=== PATIENT | female | born 1950 | race Caucasian/White ===

== ENCOUNTER 2016-11-17 12:17 | Observation (INO) | payer OTHER ==
--- NOTE | 2016-11-17 12:37 | PDOC ---
History of Present Illness - General Chief Complaint: Pain, Acute Stated Complaint: fall Time Seen by Provider: 11/17/16 12:21 - History of Present Illness Initial Comments: 11/17/16 12:38 66-year-old female with a past medical history of prior breast cancer, C-spine surgery, and PE 2 She is currently on Coumadin, and will need to be on Coumadin for the rest of her life She also has a past medical history of hypothyroidism and hyperlipidemia Today she was out walking her dogs, and tripped and fell, striking her nose and right forehead on a rock There was no loss of consciousness, and patient remembers everything that happened to her She also sustained a bruise on her right knee, but states that her knee is not hurting her too badly now She denies any other injury, and was able to get herself back up and back to her car to drive herself home prior to coming to the emergency department She denies any syncope as the cause of the fall, and denies any loss of consciousness from the fall She denies any neck or back pain She denies any other injury, and the remainder of the review of systems is negative Her last INR was a month ago Past History - Past Medical History Allergies/Adverse Reactions: Allergies Allergy/AdvReac Type Severity Reaction Status Date / Time Penicillins Allergy Mild HIVES ? Verified 11/17/16 12:19 clindamycin AdvReac Intermediate Vomiting Verified 11/17/16 12:19 Home Medications: Ambulatory Orders Levothyroxine [Synthroid -] 88 mcg PO DAILY #0 11/21/11 Atorvastatin Ca [Lipitor] 20 mg PO DAILY 02/09/15 Cholecalciferol (Vitamin D3) [Vitamin D3] 2,000 unit PO DAILY 02/09/15 Liothyronine Sodium [Cytomel] 5 mcg PO TID 02/09/15 Omeprazole [Prilosec] 40 mg PO DAILY 02/09/15 Pentosan Polysulfate Sodium [Elmiron] 100 mg PO DAILY 02/09/15 Exemestane 25 mg PO DAILY tablet 05/27/15 Warfarin Sodium [Coumadin] 5 mg PO DAILY #0 06/28/15 Enoxaparin [Lovenox -] 80 mg SQ BID 06/29/15 Lactobacillus Acidophilus [Probiotic] 1 tab PO DAILY 06/29/15 Pantoprazole Sodium [Protonix -] 40 mg PO DAILY #0 tablet.ec 07/04/15 Anemia: No (DURING ) Asthma: No Cancer: Yes (breast) Cardiac Disorders: No (2010-C/O CHEST PAIN --TO ER-BILATERAL PE-ANTICOAGULATED AND RECOVERED) CVA: No COPD: No CHF: No Dementia: No Diabetes: No GI Disorders: Yes (GERD) Disorders: Yes (H/O INTERSTITIAL CYSTITIS,IMPROVED SINCE ON [place]) HTN: Yes (RECENTLY,"ANXIOUS" R/T SURGERY) Hypercholesterolemia: Yes Liver Disease: No Seizures: No Thyroid Disease: Yes Other medical history: mixed conective tissue dz - Surgical History Abdominal Surgery: Yes (BENIGN MASS REMOVED FROM ABD 1994) Appendectomy: No Cardiac Surgery: No Cholecystectomy: No Lung Surgery: No Neurologic Surgery: No Orthopedic Surgery: Yes (RIGHT ANKLE ORIF 2004,) - Immunization History Td Vaccination: Yes Immunization Up to Date: Yes - Psycho/Social/Smoking Cessation Hx Anxiety: No Suicidal Ideation: No Smoking Status: No Smoking History: Former smoker Have you smoked in the past 12 months: No Number of Cigarettes Smoked Daily: 0 If you are a former smoker, when did you quit?: 50 YRS AGO Cigars Per Day: 0 Information on smoking cessation initiated: No Hx Alcohol Use: No Drug/Substance Use Hx: No Substance Use Type: None Hx Substance Use Treatment: No Review of Systems - Review of Systems Able to Perform ROS?: Yes Comments:: 11/17/16 12:40 Review of systems is as per history of present illness and otherwise negative *Physical Exam - Vital Signs Last Vital Signs Temp Pulse Resp BP Pulse Ox 98 F 107 H 18 156/97 100 11/17/16 12:18 11/17/16 12:18 11/17/16 12:18 11/17/16 12:18 11/17/16 12:18 - Physical Exam Comments: 11/17/16 12:53 Physical exam Last Vital Signs Temp Pulse Resp BP Pulse Ox 98 F 107 H 18 156/97 100 11/17/16 12:18 11/17/16 12:18 11/17/16 12:18 11/17/16 12:18 11/17/16 12:18 GENERAL: The patient is awake, alert, and fully oriented, and in no apparent distress. HEAD: There is a large contusion/abrasion on the right forehead There is a large contusion/abrasion on the bridge of the nose EYES: Pupils equal, round and reactive to light, extraocular movements intact, sclera anicteric, conjunctiva are normal. ENT: Moist mucous membranes. NECK: Normal range of motion, supple LUNGS: Breath sounds equal, clear to auscultation bilaterally. No wheezes, and no crackles. HEART: Regular rate and rhythm, normal S1 and S2 without murmur, rub or gallop. ABDOMEN: Soft, nontender, normoactive bowel sounds. No guarding, no rebound. No masses appreciated. EXTREMITIES: Normal range of motion, no edema. No clubbing or cyanosis. No cords, erythema, or tenderness. NEUROLOGICAL: Cranial nerves II through XII grossly intact. Normal speech, normal gait. PSYCH: Normal mood, normal affect. SKIN: Warm, Dry, normal turgor, no rashes or lesions noted. ED Treatment Course - LABORATORY CBC & Chemistry Diagram: 11/17/16 12:46 11/17/16 12:46 - RADIOLOGY Radiology Studies Ordered: Category Date Time Status FACIAL BONES CT W/O CONTRAST [CT] Stat CT Scan 11/17/16 12:[address] WITHOUT CONTRAST [CT] Stat CT Scan 11/17/16 12:33 Ordered Medical Decision Making - Medical Decision Making 11/17/16 13:11 Closed head injury on Coumadin, also nasal bridge injury The wounds were cleansed thoroughly with peroxide 11/17/16 13:38 CT scan of facial bones No evidence of acute fracture CT scan of the head without NAD INR 2.12 Laboratory Results - last 24 hr 11/17/16 11/17/16 12:46 12:46 INR 2.12 H Sodium 139 Potassium 4.4 Chloride 106 Carbon Dioxide 25 Anion Gap 8 BUN 14 Creatinine 0.8 Creat Clearance w eGFR > 60 Random Glucose 103 Calcium 9.4 Total Bilirubin 0.3 D AST 20 ALT 19 Alkaline Phosphatase 91 Total Protein 7.2 Albumin 4.3 Closed head injury and patient on Coumadin Will need to be placed in observation and rescanned Case discussed with hospitalist-place in observation 11/17/16 13:56 CT scan of the right hip as read by me-severe DJD, no definite fracture is seen CT scan of the head without as read by me-significant atrophy, without any acute findings seen *DC/Admit/Observation/Transfer Diagnosis at time of Disposition: Closed head injury, Anticoagulant long-term use - Discharge Dispostion Condition at time of disposition: Stable Admit: Yes - Referrals Referrals: Chaim Charlton MD [Primary Care Provider] -
[2016-11-17 13:17] LABS: INR 2.12 (0.82-1.09); PROTHROMBIN TIME (PATIENT) 23.4 SEC (10.2-13.0)
[2016-11-17 13:21] LABS: ALBUMIN 4.3 g/dl (3.5-5.0); ALK PHOS 91 U/L (32-92); ANION GAP 8 (8-16); BILIRUBIN,TOTAL 0.3 mg/dl (0.2-1.0); CALCIUM 9.4 mg/dl (8.4-10.2); CO2 25 mmol/L (22-28); CREATININE 0.8 mg/dl (0.6-1.3); GLUCOSE,RANDOM 103 mg/dl (74-106); SGOT/AST 20 U/L (10-42); SGPT/ALT 19 U/L (10-40); TOT PROT 7.2 g/dl (6.4-8.3)
--- NOTE | 2016-11-17 13:57 | HP ---
CHIEF COMPLAINT: fall hit head PCP:Dr. Charlton HISTORY OF PRESENT ILLNESS:patient is a 66-year-old female, with a past medical history of pulmonary embolism (Coumadin), GERD, hypothyroidism, and hyperlipidemia. patient reports she was walking her dogs today tripped, fell, struck her nose and forehead onto a rock. She is able to remember the full incident in detail. Patient contacted her primary care physician Dr. Charlton and was referred to the emergency department for further evaluation. ER course was notable for: (1)CT scan of head, no acute pathology. (2)INR 2.1 (3)CT scan of the facial bones no acute fracture Recent Travel:none PAST MEDICAL HISTORY:pulmonary embolism 2 ( Coumadin) GERD, hypothyroidism hyperlipidemia. PAST SURGICAL HISTORY:right ankle ORIF Social History: resides at home alone Smoking:none Alcohol:none Drugs: None Family History: Allergies Penicillins Allergy (Mild, Verified 11/17/16 12:19) HIVES ? hives? as a child clindamycin Adverse Reaction (Intermediate, Verified 11/17/16 12:19) Vomiting HOME MEDICATIONS: Home Medications Medication Instructions Recorded Levothyroxine [Synthroid -] 88 mcg PO DAILY #0 11/21/11 Atorvastatin Ca [Lipitor] 20 mg PO DAILY 02/09/15 Cholecalciferol (Vitamin D3) 2,000 unit PO DAILY 02/09/15 [Vitamin D3] Liothyronine Sodium [Cytomel] 5 mcg PO TID 02/09/15 Omeprazole [Prilosec] 40 mg PO DAILY 02/09/15 Pentosan Polysulfate Sodium 100 mg PO DAILY 02/09/15 [Elmiron] Exemestane 25 mg PO DAILY tablet 05/27/15 Warfarin Sodium [Coumadin] 5 mg PO DAILY #0 06/28/15 Enoxaparin [Lovenox -] 80 mg SQ BID 06/29/15 Lactobacillus Acidophilus 1 tab PO DAILY 06/29/15 [Probiotic] Pantoprazole Sodium [Protonix -] 40 mg PO DAILY #0 tablet.ec 07/04/15 REVIEW OF SYSTEMS CONSTITUTIONAL: Absent: fever, chills, diaphoresis, generalized weakness, malaise, loss of appetite, weight change HEENT: Absent: rhinorrhea, nasal congestion, throat pain, throat swelling, difficulty swallowing, mouth swelling, ear pain, eye pain, visual changes CARDIOVASCULAR: Absent: chest pain, syncope, palpitations, irregular heart rate, lightheadedness , peripheral edema RESPIRATORY: Absent: cough, shortness of breath, dyspnea with exertion, orthopnea, wheezing, stridor, hemoptysis GASTROINTESTINAL: Absent: abdominal pain, abdominal distension, nausea, vomiting, diarrhea, constipation, melena, hematochezia GENITOURINARY: Absent: dysuria, frequency, urgency, hesitancy, hematuria, flank pain, genital pain MUSCULOSKELETAL: Absent: myalgia, arthralgia, joint swelling, back pain, neck pain SKIN: Absent: rash, itching, pallor HEMATOLOGIC/IMMUNOLOGIC: Absent: easy bleeding, easy bruising, lymphadenopathy, frequent infections ENDOCRINE: Absent: unexplained weight gain, unexplained weight loss, heat intolerance, cold intolerance NEUROLOGIC: Absent: headache, focal weakness or paresthesias, dizziness, unsteady gait, seizure, mental status changes, bladder or bowel incontinence PSYCHIATRIC: Absent: anxiety, depression, suicidal or homicidal ideation, hallucinations. PHYSICAL EXAMINATION Vital Signs - 24 hr 11/17/16 12:18 Temperature 98 F Pulse Rate 107 H Respiratory 18 Rate Blood Pressure 156/97 O2 Sat by Pulse 100 Oximetry (%) GENERAL: Awake, alert, and fully oriented, in no acute distress. HEAD: Normal with no signs of trauma. EYES: Pupils equal, round and reactive to light, extraocular movements intact, sclera anicteric, conjunctiva clear. No lid lag. EARS, NOSE, THROAT: Ears normal, nares patent, oropharynx clear without exudates. Moist mucous membranes. abrasion to forehead no bogginess noted, abrasion to bridge of nose, no septal deviation noted NECK: Normal range of motion, supple without lymphadenopathy, JVD, or masses. LUNGS: Breath sounds equal, clear to auscultation bilaterally. No wheezes, and no crackles. No accessory muscle use. HEART: Regular rate and rhythm, normal S1 and S2 without murmur, rub or gallop. ABDOMEN: Soft, nontender, not distended, normoactive bowel sounds, no guarding, no rebound, no masses. No hepatomegaly or splenomegaly. MUSCULOSKELETAL: Normal range of motion at all joints. No bony deformities or tenderness. No CVA tenderness. UPPER EXTREMITIES: 2+ pulses, warm, well-perfused. No cyanosis. No clubbing. Cap refill <2 seconds. No peripheral edema. LOWER EXTREMITIES: 2+ pulses, warm, well-perfused. No calf tenderness. No peripheral edema. NEUROLOGICAL: Cranial nerves II-XII intact. Normal speech. Normal gait. PSYCHIATRIC: Cooperative. Good eye contact. Appropriate mood and affect. SKIN: Warm, dry, normal turgor, no rashes or lesions noted. Laboratory Results - last 24 hr 11/17/16 11/17/16 12:46 12:46 INR 2.12 H Sodium 139 Potassium 4.4 Chloride 106 Carbon Dioxide 25 Anion Gap 8 BUN 14 Creatinine 0.8 Creat Clearance w eGFR > 60 Random Glucose 103 Calcium 9.4 Total Bilirubin 0.3 D AST 20 ALT 19 Alkaline Phosphatase 91 Total Protein 7.2 Albumin 4.3 F/E/N - low sodium diet ppx hold ac recent head injury protonix oob scd dispo: requires observation, discharge tomorrow if head CT scan is negative Problem List - Problem (1) Closed head injury Assessment/Plan: - CT scan of the head noted no acute pathology, repeat CT scan tomorrow a.m. - Hold all anticoagulation until repeat CT scan tomorrow morning - Frequent neuro checks Code(s): S09.90XA - UNSPECIFIED INJURY OF HEAD, INITIAL ENCOUNTER Qualifiers: Encounter type: initial encounter Qualified Code(s): S09.90XA - Unspecified injury of head, initial encounter (2) Gastroesophageal reflux Assessment/Plan: - continue Protonix Code(s): K21.9 - GASTRO-ESOPHAGEAL REFLUX DISEASE WITHOUT ESOPHAGITIS Qualifiers: Esophagitis presence: without esophagitis Qualified Code(s): K21.9 - Gastro-esophageal reflux disease without esophagitis (3) Hyperlipidemia Assessment/Plan: - continue Lipitor Code(s): E78.5 - HYPERLIPIDEMIA, UNSPECIFIED Qualifiers: Hyperlipidemia type: pure hypercholesterolemia Qualified Code(s): E78.0 - Pure hypercholesterolemia (4) Hypothyroidism Assessment/Plan: - continue levothyroxine Code(s): E03.9 - HYPOTHYROIDISM, UNSPECIFIED Qualifiers: Hypothyroidism type: other Qualified Code(s): E03.8 - Other specified hypothyroidism; E06.3 - Autoimmune thyroiditis Visit type - Emergency Visit Emergency Visit: Yes ED Registration Date: 11/17/16 Care time: The patient presented to the Emergency Department on the above date and was hospitalized for further evaluation of their emergent condition. - New Patient This patient is new to me today: No - Critical Care Critical Care patient: No
[2016-11-17 14:39] LABS: MCH 29.3 pg (25.7-33.7); MCHC 33.6 g/dl (32.0-36.0); MEAN CELL VOLUME 87.1 fl (80-96); MEAN PLT VOLUME 9.6 fl (7.5-11.1); PLATELET COUNT 245 K/MM3 (134-434); RDW 12.2 % (11.6-15.6); WHITE BLOOD COUNT 6.9 K/mm3 (4.0-10.0)
[2016-11-17 16:21] VITALS: BMI 31.3
[2016-11-17] MEDS: MUPIROCIN 2% TOPICAL OINTMENT 22 GM TUBE TP SCH (21:17)
[2016-11-17] MEDS: LIOTHYRONINE SODIUM 5 MCG TABLET PO SCH (21:18)
[2016-11-17] MEDS ORDERED: ATORVASTATIN CA 20 MG TABLET (FP) PO SCH (22:00)
[2016-11-18 05:38] VITALS: BP 120/36; PULSE 74; TEMP 98.8
[2016-11-18] MEDS ORDERED: PT OWN MED DRAWER 7, Y5N ONE ×2 (06:18→09:19)
[2016-11-18] MEDS: LIOTHYRONINE SODIUM 5 MCG TABLET PO SCH (06:42)
[2016-11-18] MEDS ORDERED: LEVOTHYROXINE NA 88 MCG TABLET (FP) PO SCH (07:00)
[2016-11-18 08:46] LABS: BASOPHIL 0.7 % (0-2.0); EOSINOPHIL 4.5 % (0-4.5); MCH 29.2 pg (25.7-33.7); MCHC 33.5 g/dl (32.0-36.0); MEAN PLT VOLUME 9.2 fl (7.5-11.1); PLATELET COUNT 212 K/MM3 (134-434); RDW 12.3 % (11.6-15.6); WHITE BLOOD COUNT 6.5 K/mm3 (4.0-10.0)
[2016-11-18 08:49] LABS: INR 2.19 (0.82-1.09); PROTHROMBIN TIME (PATIENT) 24.1 SEC (10.2-13.0)
[2016-11-18] MEDS: MUPIROCIN 2% TOPICAL OINTMENT 22 GM TUBE TP SCH (09:27)
[2016-11-18] MEDS ORDERED: EXEMESTANE 25 MG PO SCH (10:00)
[2016-11-18] MEDS ORDERED: PANTOPRAZOLE 40 MG TABLET (FP) PO SCH (10:00)
[2016-11-18] MEDS ORDERED: CHOLECALCIFEROL (VITAMIN D3) 1,000 UNIT TABLET (FP) PO SCH (10:00)
[2016-11-18] MEDS ORDERED: PATIENT'S OWN MEDICATION (NON-FORMULARY) (Pentosan Polysulfate Sodium [Elmiron] 100 MG) PO SCH (10:00)
[2016-11-18] MEDS ORDERED: ATORVASTATIN CA 20 MG TABLET (FP) PO SCH (10:00)
--- NOTE | 2016-11-18 12:10 | DS ---
Physical Exam: Last Vital Signs Temp Pulse Resp BP Pulse Ox 98.8 F 74 19 120/36 96 11/18/16 05:00 11/18/16 05:00 11/18/16 07:57 11/18/16 05:00 11/18/16 07:57 PHYSICAL EXAM GENERAL: The patient is awake, alert, and fully oriented, in no acute distress. HEAD: Normal with no signs of trauma. EYES: PERRL, extraocular movements intact, sclera anicteric, conjunctiva clear. slight supraorbital swelling and echhymosis. ENT: Ears normal, nares patent,slight abrasion to bridge of the nose, oropharynx clear without exudates, moist mucous membranes. NECK: Trachea midline, full range of motion, supple. LUNGS: Breath sounds equal, clear to auscultation bilaterally, no wheezes, no crackles, no accessory muscle use. HEART: Regular rate and rhythm, S1, S2 without murmur, rub or gallop. ABDOMEN: Soft, nontender, nondistended, normoactive bowel sounds, no guarding, no rebound. EXTREMITIES: 2+ pulses, warm, well-perfused, no edema, slight right knee abrasion. NEUROLOGICAL: Cranial nerves II through XII grossly intact. Normal speech, gait not observed. PSYCH: Normal mood, normal affect. SKIN: Warm, dry, normal turgor, no rashes or lesions noted. LABS Laboratory Results - last 24 hr 11/18/16 11/18/16 07:42 07:42 WBC 6.5 RBC 4.80 Hgb 14.0 Hct 41.8 MCV 87.0 MCHC 33.5 RDW 12.3 Plt Count 212 MPV 9.2 Neutrophils % 57.0 Lymphocytes % 30.7 Monocytes % 7.1 Eosinophils % 4.5 Basophils % 0.7 INR 2.19 H HOSPITAL COURSE: 66-year-old female, with a past medical history of pulmonary embolism on Coumadin, GERD, hypothyroidism, and hyperlipidemia. presented to the ER s/p fall, patient reports she was walking her dogs yesterday tripped, fell, struck her nose and forehead onto a rock, she denies any LOC, denies any neurological symptoms. She is able to remember the full incident in detail. Patient contacted her primary care physician Dr. Charlton and she was instructed to prompt to the emergency department for further evaluation and management. In the ER, labs were done, WNL, initial head CT negative, no intracranial bleed, facial bone CT no fracture. INR at 2.12 originally then 2.19, pt vwas placed in observation, coumadin was held, neurological status was closely monitored, no change from baseline mentation, no neurological issues, vitals have been stable , a repeat CT scan was done and it was negative for bleeding, patient to resume coumadin, follow up INR Sunday or Sunday this week and PCP follow up early this week, patient was made aware, she verbalized unbderstanding. D/c home in stable condition Date of Admission:11/17/16 Date of Discharge: 11/18/16 Minutes to complete discharge: 35 Discharge Summary Reason For Visit: CLOSED HEAD INJURY Current Active Problems Anticoagulant long-term use (Acute) Closed head injury (Acute) - Instructions Diet, Activity, Other Instructions: Cont ' regular diet f/u with PCP this week Return to ER if any increasing headache, dizziness, visual disturbances or any changes in mentation. Referrals: Chaim Charlton MD [Primary Care Provider] - Disposition: HOME - Home Medications Comprehensive Discharge Medication List: Ambulatory Orders Cholecalciferol (Vitamin D3) [Vitamin D3] 2,000 unit PO DAILY 02/09/15 Liothyronine Sodium [Cytomel] 5 mcg PO TID 02/09/15 Pentosan Polysulfate Sodium [Elmiron] 100 mg PO DAILY 02/09/15 Exemestane 25 mg PO DAILY tablet 05/27/15 Aspirin [ASA -] 81 mg PO DAILY 11/17/16 Warfarin Na [Coumadin -] 7.5 mg PO MOFR 11/17/16 Warfarin Sodium [Coumadin] 5 mg PO SUTUWETHSA 11/17/16 Exemestane [Exemestane] 25 mg PO DAILY 11/18/16 Mupirocin Ointment [Bactroban 2% Ointment -] 1 applic TP BID applic 11/18/16 This patient is new to me today: Yes Date on this admission: 11/18/16 Emergency Visit: Yes ED Registration Date: 11/17/16 Care time: The patient presented to the Emergency Department on the above date and was hospitalized for further evaluation of their emergent condition. Critical Care patient: No - Discharge Referral Referred to [facility] Med [facility] Yes Physician Referral: Chaim Charlton MD (Int Med)
== END 2016-11-18 20:26 | disposition home or self-care (01) ==
LOC: FER 12:17 → FM/S 14:01
PROVIDERS: ADMIT Internal Medicine; ATTEND Nurse Practitioner Acute Care
DX: S09.8XXA Other specified injuries of head, initial encounter (principal); W01.0XXA Fall on same level from slipping, tripping and stumbling without subsequent striking against object, initial encounter; Y93.89 Activity, other specified; Y92.89 Other specified places as the place of occurrence of the external cause; Y99.8 Other external cause status; E03.9 Hypothyroidism, unspecified; K21.9 Gastro-esophageal reflux disease without esophagitis; E78.5 Hyperlipidemia, unspecified; Z85.3 Personal history of malignant neoplasm of breast; Z86.711 Personal history of pulmonary embolism; Z79.01 Long term (current) use of anticoagulants; Z87.891 Personal history of nicotine dependence
CPT/HCPCS: 36415; 70450-TC; 70486-TC; 80053; 85025; 85027; 85610; 99283-25; G0378

== ENCOUNTER 2019-11-12 10:47 | Day surgery (SDC) | payer OTHER ==
[2019-11-07 16:52] VITALS: BMI 32.8
[2019-11-12] MEDS ORDERED: LIDOCAINE HCL/PF 2% SDV 5ML VIAL ONE (12:32)
[2019-11-12] MEDS ORDERED: PROPOFOL 20 ML ONE ×2 (12:32)
[2019-11-12 13:15] VITALS: TEMP 97.8
[2019-11-12 13:39] VITALS: BP 110/61; PULSE 71
--- NOTE | 2019-11-14 16:16 | PATH ---
Surgical Pathology Report Patient Name: SHANEKA PERKINS [facility]. Rec. #: [id number] /Age/Gender: 1950 (Age: 69) / F Account: [id number] Location: [facility] Taken: 11/12/2019 Received: 11/12/2019 Reported: 11/14/2019 Physicians: Amanda Self M.D. Specimen(s) Received RIGHT COLON BIOPSY Clinical History Diarrhea Postoperative diagnosis: Hemorrhoids Final Diagnosis RIGHT COLON, BIOPSY: COLONIC MUCOSA WITH NO PATHOLOGIC FINDINGS. Electronically Signed Cheyenne Pineda M.D. Gross Description Received in formalin, labeled "right colon biopsy" are 4 rae, irregular portions of soft tissue ranging from 0.1-0.2 cm. in greatest dimension. The specimens are submitted in toto in one cassette. 11/13/2019 [facility]11/13/2019
== END 2019-11-12 13:42 | disposition home or self-care (01) ==
LOC: FASU-ENDO 10:47
PROVIDERS: ATTEND Internal Medicine Gastroenterology
PROC: 0DBK8ZX Excision of Ascending Colon, Via Natural or Artificial Opening Endoscopic, Diagnostic (ICD-10-PCS; principal; 2019-11-12 12:36)
DX: R19.7 Diarrhea, unspecified (principal); K64.2 Third degree hemorrhoids
CPT/HCPCS: 88305-TC

== ENCOUNTER 2020-03-24 10:23 | Day surgery (SDC) | payer OTHER ==
[2020-03-19 17:56] VITALS: BMI 32.8
[2020-03-24] MEDS ORDERED: PROPOFOL 20 ML ONE ×2 (10:55)
[2020-03-24 11:08] VITALS: TEMP 98.6
[2020-03-24] MEDS ORDERED: LIDOCAINE HCL/PF 2% SDV 5ML VIAL ONE (11:21)
[2020-03-24 12:04] VITALS: PULSE 69
[2020-03-24 12:21] VITALS: BP 126/60
--- NOTE | 2020-03-31 15:35 | PATH ---
Surgical Pathology Report Patient Name: SHANEKA PERKINS [facility]. Rec. #: [id number] /Age/Gender: 1950 (Age: 69) / F Account: [id number] Location: [facility] Taken: 03/24/2020 Received: 03/24/2020 Reported: 03/31/2020 Physicians: Amanda Self M.D. Specimen(s) Received A: SECOND PORTION DUODENUM B: ANTRUM C: GASTRIC POLYP D: GE JUNCTION Clinical History Diarrhea, dyspepsia Postoperative diagnosis: Gastric polyps, gastritis Final Diagnosis A. SECOND PORTION OF DUODENUM, BIOPSY: DUODENAL MUCOSA WITH NO PATHOLOGIC FINDINGS. B. GASTRIC ANTRUM, BIOPSY: MILD CHRONIC GASTRITIS WITH FEATURES OF REACTIVE GASTROPATHY. IMMUNOSTAIN IS NEGATIVE FOR H PYLORI ORGANISMS. C. GASTRIC POLYP, BIOPSY: GASTRIC FUNDIC GLAND POLYP. IMMUNOSTAIN IS NEGATIVE FOR H PYLORI ORGANISMS. D. GE JUNCTION, BIOPSY: ESOPHAGOGASTRIC JUNCTIONAL (SQUAMOCOLUMNAR) MUCOSA SHOWING MODERATE CHRONIC INFLAMMATION WITH FEATURES OF REFLUX ESOPHAGITIS. NEGATIVE FOR INTESTINAL METAPLASIA. Electronically Signed Cheyenne Pineda M.D. Gross Description A. Received in formalin, labeled "biopsy second portion of duodenum" is a rae, irregular portion of soft tissue measuring 0.3 cm. in greatest dimension. The specimen is submitted in toto in one cassette. B. Received in formalin, labeled "biopsy gastric antrum" are 2 rae, irregular portions of soft tissue measuring 0.1 and 0.3 cm. in greatest dimension. The specimens are submitted in toto in one cassette. C. Received in formalin, labeled "biopsy gastric polyp" is a rae, irregular portion of soft tissue measuring 0.4 cm. in greatest dimension. The specimen is submitted in toto in one cassette. D. Received in formalin, labeled "biopsy GE junction" is a rae, irregular portion of soft tissue measuring 0.3 cm. in greatest dimension. The specimen is submitted in toto in one cassette. 03/25/2020 [facility]03/25/2020
== END 2020-03-24 12:35 | disposition home or self-care (01) ==
LOC: FASU-ENDO 10:23
PROVIDERS: ATTEND Internal Medicine Gastroenterology
PROC: 0DB68ZX Excision of Stomach, Via Natural or Artificial Opening Endoscopic, Diagnostic (ICD-10-PCS; 2020-03-24)
PROC: 0DB38ZX Excision of Lower Esophagus, Via Natural or Artificial Opening Endoscopic, Diagnostic (ICD-10-PCS; 2020-03-24)
PROC: 0DB98ZX Excision of Duodenum, Via Natural or Artificial Opening Endoscopic, Diagnostic (ICD-10-PCS; principal; 2020-03-24 11:37)
DX: K31.7 Polyp of stomach and duodenum (principal); K29.50 Unspecified chronic gastritis without bleeding; K21.0 Gastro-esophageal reflux disease with esophagitis; K31.9 Disease of stomach and duodenum, unspecified; R10.13 Epigastric pain
CPT/HCPCS: 88305-TC; 88342-TC